=== PATIENT | male | born 1970 | race Two or more races ===

== ENCOUNTER 2016-10-04 08:14 | Day surgery (SDC) | payer MEDICAID ==
[~2016-10-04 08:14] MED LIST: LIDOCAINE 0.5% INJ-PF (5 MG/ML) 50 ML SDV SUBCUT PRN; MITOMYCIN OPH SOLN 0.02% 2 ML OS PRN; MOXIFLOXACIN HCL 0.5% OPH SOLN 3 ML OS PRN; RINGERS SOLUTION,LACTATED 500 ML IV PRN; TETRACAINE HCL 0.5% OPH SOLN 0.6 ML DROPERETTE OS PRN
[2016-10-04] MEDS: TETRACAINE HCL 0.5% OPH SOLN 2 ML OS PRN ×3 (08:35→09:17)
[2016-10-04] MEDS: BESIFLOXACIN HCL 0.6% OPH SUSP 5 ML BOTTLE OS PRN ×3 (08:36→08:50)
[2016-10-04] MEDS: CYCLOPENTOLATE 0.2%/PHENYLEPHRINE 1% OPH SOLN 2 ML OS PRN ×4 (08:36→09:17)
[2016-10-04] MEDS ORDERED: PROPOFOL INJ 200 MG/20 ML VIAL IV ONE (08:57)
[2016-10-04] MEDS ORDERED: MIDAZOLAM 2 MG/2 ML INJ ONE (08:57)
[2016-10-04] MEDS ORDERED: LIDOCAINE 2% INJ (20 MG/ML) 20 ML MDV ONE (09:07)
[2016-10-04] MEDS ORDERED: BUPIVACAINE HCL 0.75% INJ/PF (7.5 MG/1 ML) 10 ML SDV ONE (09:07)
[2016-10-04] MEDS ORDERED: TOBRAMYCIN SULFATE/DEXAMETH OPH OINTMENT 3.5 GM ONE (09:07)
[2016-10-04] MEDS ORDERED: HYALURONIDASE INJ 150 UNIT/1 ML VIAL ONE (09:08)
[2016-10-04] MEDS ORDERED: POVIDONE-IODINE 5% OPH PREP SOLN 30 ML ONE (09:30)
--- NOTE | 2016-10-04 13:28 | [facility] OPERATIVE REPORT E ---
[facility] Operative Report NAME: ALEJANDRO DUARTE AGE: 46Y DATE OF SURGERY: 10/04/2016 ROOM: PREOPERATIVE DIAGNOSIS: Pterygium of the left eye. OPERATION: Pterygium excision with mitomycin C and amniotic membrane graft of the left eye. SURGEON: AUBRIE BRENNER M.D. ANESTHESIA: Topical with retrobulbar block. BLOOD LOSS: Less than 2 mL. COMPLICATIONS: None. DESCRIPTION OF OPERATIVE REPORT: After obtaining appropriate informed consent, the patient was prepped and draped in sterile fashion. A retrobulbar block was performed. Following this, the nasal pterygium was identified and a skin marker was used to outline the amount to be excised. Then a 0.12 forcep and Destini were used to dissect out the pterygium, being careful to avoid the medial rectus. Following this, the cornea was smoothed with a [place]ning[place] blade. Cautery was applied to achieve hemostasis and we dissected down to bare sclerae, making sure to remove Tenon's as well. Once hemostasis was achieved and the conjunctivae was undermined, the appropriate amniotic membrane size was measured and placed onto the field. This was applied with Tisseel glue and found to be in excellent position. Following this, the lid speculum was removed and a TobraDex ointment and pressure patch were applied to the patient. The patient woke up in postop recovery in stable condition. DICTATING PHYSICIAN: AUBRIE BRENNER M.D. [id number] PHY#: [id number] ID: [id number] JOB#: [id number] ACCT: [id number] cc:AUBRIE BRENNER M.D. > MTDD
--- NOTE | 2016-10-04 13:29 | [facility] DISCHARGE SUMMARY E ---
[facility] Discharge Summary NAME: ALEJANDRO DUARTE AGE: 46Y ADMITTED: 10/04/2016 DISCHARGED: 10/04/2016 This is a 46-year-old male who underwent pterygium excision with mitomycin C and amniotic membrane graft to the left eye. Diagnosis is symptomatic pterygium. The patient was having constant foreign body sensation in the left eye, constant redness to the left eye, with little relief from the drops. He should be on a regular diet. No bending at the waist. No heavy lifting. He should leave his pressure patch on until tomorrow and then will remove it and use TobraDex 3 times a day and followup with me in 1 week. He will call sooner if he has any questions or concerns. DICTATING PHYSICIAN: AUBRIE BRENNER M.D. [id number] PHY#: [id number] ID: [id number] JOB#: [id number] ACCT: [id number] cc:AUBRIE BRENNER M.D. >
== END 2016-10-04 11:31 | disposition home or self-care (01) ==
LOC: SC 08:14
PROVIDERS: ATTEND Internal Medicine
PROC: 08B Eye, Excision (ICD-10-PCS; principal; 2016-10-04 09:00)
DX: H11.002 Unspecified pterygium of left eye (principal); H53.10 Unspecified subjective visual disturbances; H25.13 Age-related nuclear cataract, bilateral; Z87.891 Personal history of nicotine dependence; Z79.899 Other long term (current) drug therapy
CPT/HCPCS: 88305 ×2; 65426; J2250; J3490 ×4; J2704; J9280; J3470; 140

== ENCOUNTER 2017-04-26 18:52 | Emergency (ER) | payer MEDICAID ==
[2017-04-26 19:41] VITALS: BP 131/87
[2017-04-26] MEDS ORDERED: ONDANSETRON 4 MG TAB.RAPDIS PO ONE (20:12)
[2017-04-26] MEDS ORDERED: OXYCODONE-ACETAMINOPHEN 5-325 MG TABLET PO ONE (20:12)
--- NOTE | 2017-04-26 20:13 | ER Document Report ---
ED Fall <ISABELL MONTOYA - Last Filed: 04/26/17 21:29> - General Mode of Arrival: Ambulatory Information source: Patient, Relative TRAVEL OUTSIDE OF THE [place] IN LAST 30 DAYS: No - HPI Occurred: Just prior to arrival <SAMEERA ARECHIGA - Last Filed: 04/27/17 18:12> - General Chief Complaint: Fall Stated Complaint: FALL Time Seen by Provider: 04/26/17 20:00 Notes: Patient is a 46 year old male presenting to the emergency department accompanied by and children due to a fall at 1800. Patient states he was at the movies with his family when he slipped down some stairs and landed on his left ribs. Patient states that it hurts to breathe. Patients PCP is Dr. Katelyn Cruz. (SAMEERA ARECHIGA) - Related data Allergies/Adverse Reactions: No Known Allergies Allergy (Unverified 09/27/16 12:59) Past Medical History - General Information source: Patient, Relative - Social History Smoking Status: Unknown if Ever Smoked Chew tobacco use (# tins/day): No Frequency of alcohol use: None Drug Abuse: None Family History: Reviewed & Not Pertinent Patient has suicidal ideation: No Patient has homicidal ideation: No <SAMEERA ARECHIGA - Last Filed: 04/27/17 18:12> Review of Systems - Review of Systems Constitutional: No symptoms reported EENT: No symptoms reported Cardiovascular: No symptoms reported Respiratory: See HPI, Hurts to breathe Gastrointestinal: No symptoms reported Genitourinary: No symptoms reported Male Genitourinary: No symptoms reported Musculoskeletal: Other - left sided chest pain- ribs Skin: No symptoms reported Hematologic/Lymphatic: No symptoms reported Neurological/Psychological: No symptoms reported -: Yes All other systems reviewed and negative <SAMEERA ARECHIGA - Last Filed: 04/27/17 18:12> Physical Exam - General General appearance: Appears well, Alert In distress: None - HEENT Head: Normocephalic, Atraumatic Conjunctiva: Normal Pupils: PERRL Mucous membranes: Moist - Respiratory Respiratory status: No respiratory distress Chest status: Tender - Left anterior medial ribs, T5-T6 tender to palpation. Breath sounds: Normal - Cardiovascular Rhythm: Regular Heart sounds: Normal auscultation - Abdominal Inspection: Normal Distension: No distension Bowel sounds: Normal Tenderness: Nontender Organomegaly: No organomegaly - Back Back: Normal - Extremities General upper extremity: Normal inspection, Normal ROM General lower extremity: Normal inspection, Normal ROM - Neurological Neuro grossly intact: Yes Cognition: Normal Orientation: AAOx4 [place] Coma Scale Eye Opening: Spontaneous [place] Coma Scale Verbal: Oriented [place] Coma Scale Motor: Obeys Commands [place] Coma Scale Total: 15 Speech: Normal - Psychological Associated symptoms: Normal affect, Normal mood - Skin Skin Temperature: Warm Skin Moisture: Dry <SAMEERA ARECHIGA - Last Filed: 04/27/17 18:12> - Vital signs Vitals: Temp Pulse Resp BP Pulse Ox 97.7 F 68 18 131/87 H 99 04/26/17 19:39 04/26/17 19:39 04/26/17 19:39 04/26/17 19:39 04/26/17 19:39 Course - Laboratory Result Diagrams: 04/26/17 20:40 04/26/17 20:40 <ISABELL MONTOYA - Last Filed: 04/26/17 21:29> - Laboratory Result Diagrams: 04/26/17 20:40 04/26/17 20:40 <SAMEERA ARECHIGA - Last Filed: 04/27/17 18:12> - Vital Signs Vital signs: Temp Pulse Resp BP Pulse Ox 97.7 F 68 18 131/87 H 99 04/26/17 19:39 04/26/17 19:39 04/26/17 19:39 04/26/17 19:39 04/26/17 19:39 - Laboratory Laboratory results interpreted by me: 04/26/17 04/26/17 20:40 20:40 WBC 12.4 H Absolute Neutrophils 8.8 H Alkaline Phosphatase 136 H Discharge <ISABELL MONTOYA - Last Filed: 04/26/17 21:29> <SAMEERA ARECHIGA - Last Filed: 04/27/17 18:12> - Discharge Clinical Impression: Contusion of rib on left side Qualifiers: Encounter type: initial encounter Qualified Code(s): S20.212A - Contusion of left front wall of thorax, initial encounter Condition: Stable Disposition: HOME, SELF-CARE Additional Instructions: Rib Injuries and Fractures: You have been diagnosed as having either bruised or broken ribs. These two injuries are treated in the same way. It will usually take four to six weeks for these injured ribs to heal. Sometimes, rib belts or anesthetic injections of the chest wall help reduce the pain. If you are using a rib belt, you should cough or take a deep breath at least every hour or two to prevent lung complications. You should not engage in any strenuous physical activity until released by your physician. The usual rule is "if it hurts, don't do it." Rib fractures can lead to serious lung complications including lung collapse, hemorrhage, and pneumonia. You should call the physician or return at once if any of the following occur: (1) Fever or chills. (2) Persistent cough, coughing up blood, or shortness of breath. (3) Increasing pain. (4) Weakness, lightheadedness, or fainting. Your x-rays do not show fractures of the ribs. There could be some hairline cracks that cannot be seen on x-ray. Cracked ribs and bruised ribs both hurt about the same amount. You will be prescribed pain medication to take for your pain. Limit activity that makes the ribs hurt worse. Be sure to take deep breaths every few hours. Follow-up with a local medical doctor if not improving over the next 1-2 weeks. RETURN TO THE EMERGENCY ROOM IF ANY NEW OR WORSENING SYMPTOMS. Prescriptions: Oxycodone HCl/Acetaminophen [Percocet 5-325 mg Tablet] 1 - 2 tab PO ASDIR PRN # 15 tablet PRN Reason: Referrals: RICCARDO CRUZ [employer] [Primary Care Provider] - Follow up as needed Scribe Attestation: 04/26/17 20:57 I personally performed the services described in the documentation, reviewed and edited the documentation which was dictated to the scribe in my presence, and it accurately records my words and actions. (ISABELL MONTOYA) Scribe Documentation - Scribe Written by Dominik:: Dominik Rosales, 04/26/2017 20:39 acting as scribe for :: Ciaran <SAMEERA ARECHIGA - Last Filed: 04/27/17 18:12>
[2017-04-26 20:47] LABS: ABSOLUTE EOSINOPHILS # (AUTO) 0.1 10^3/uL (0.0-0.6); ABSOLUTE LYMPHOCYTES (AUTO) 2.5 10^3/uL (0.5-4.7); ABSOLUTE MONOCYTES (AUTO) 0.9 10^3/uL (0.1-1.4); ABSOLUTE NEUT (AUTO) 8.8 10^3/uL (1.7-8.2); BASOPHILS % (AUTO) 0.4 % (0-2); EOSINOPHILS % (AUTO) 0.7 % (0-6); HEMATOCRIT 43.1 % (37.9-51.0); HEMOGLOBIN 15.1 g/dL (13.5-17.0); HGB HCT DIFFERENCE 2.2; LYMPHOCYTES % (AUTO) 20.5 % (13-45); MEAN CORPUSCULAR HEMOGLOBIN 31.7 pg (27.0-33.4); MEAN CORPUSCULAR VOLUME 90 fl (80-97); MONOCYTES % (AUTO) 7.2 % (3-13); RED BLOOD COUNT 4.77 10^6/uL (4.35-5.55); RED CELL DISTRIBUTION WIDTH 12.9 % (11.5-14.0); SEGMENTED NEUTROPHILS % (AUTO) 71.2 % (42-78); WHITE BLOOD COUNT 12.4 10^3/uL (4.0-10.5)
--- NOTE | 2017-04-26 20:50 | RADIOLOGY REPORT (SQ) ---
EXAM DESCRIPTION: RIBS LEFT W/PA CHEST COMPLETED DATE/TIME: 04/26/2017 8:35 pm REASON FOR STUDY: fell on stairs, L ant-medial rib pain T5-6 level COMPARISON: None. TECHNIQUE: Frontal view of the chest and additional views of the left ribs acquired. NUMBER OF VIEWS: Five view. LIMITATIONS: None. FINDINGS: FRONTAL CXR: No pneumothorax. No pleural effusion. No atelectasis or infiltrates. RIBS: No displaced rib fractures. No lytic or blastic bony lesions. OTHER: No other significant finding. IMPRESSION: NO PNEUMOTHORAX. NO DISPLACED RIB FRACTURES. COMMENT: SITE OF TRAUMA/COMPLAINT MARKED/STAMP COMPLETED: YES. TECHNICAL DOCUMENTATION: JOB ID: [id number] All Rights Reserved
[2017-04-26 20:59] LABS: ALANINE AMINOTRANSFERASE 31 U/L (21-72); ALBUMIN 4.6 g/dL (3.5-5.0); ALKALINE PHOSPHATASE 136 U/L (38-126); ANION GAP 13 (5-19); ASPARTATE AMINO TRANSFERASE 28 U/L (17-59); BILIRUBIN,DIRECT 0.2 mg/dL (0.0-0.4); BILIRUBIN,TOTAL 0.5 mg/dL (0.2-1.3); BLOOD UREA NITROGEN 20 mg/dL (7-20); CALCIUM 9.5 mg/dL (8.4-10.2); CARBON DIOXIDE 27 mmol/L (22-30); CHLORIDE 102 mmol/L (98-107); CREATININE RESULT 0.88 mg/dL (0.52-1.25); GLUCOSE 91 mg/dL (75-110); POTASSIUM 3.9 mmol/L (3.6-5.0); SODIUM 142.1 mmol/L (137-145); TOTAL PROTEIN 7.9 g/dL (6.3-8.2)
[2017-04-26] MEDS ORDERED: HYDROCODONE/ACETAMINOPHEN 5-325 MG 6 TAB/DSPK PO PRN (21:27)
== END 2017-04-26 21:40 | disposition home or self-care (01) ==
LOC: ER 18:52
DX: S20.212A Contusion of left front wall of thorax, initial encounter (principal); W10.9XXA Fall (on) (from) unspecified stairs and steps, initial encounter
CPT/HCPCS: 99284; 36415; 85025; 80053; 71101; S0119